=== PATIENT | male | born 2000 | race Caucasian/White ===

== ENCOUNTER 2020-09-22 17:01 | Emergency (ER) | payer OTHER, SELFPAY ==
[2020-09-22] MEDS ORDERED: Acetaminophen 500 MG TAB ONE (19:16)
[2020-09-22] MEDS ORDERED: methylPREDNISolone Sod Succ/PF 125 MG/2 ML VIAL ONE (19:27)
[2020-09-22] MEDS ORDERED: Ketorolac Tromethamine 30 MG/ML VIAL ONE (19:28)
== END 2020-09-22 20:55 | disposition home or self-care (01) ==
LOC: CSHERS 17:01
DX: U07.1 COVID-19 (principal); J12.82 Pneumonia due to coronavirus disease 2019
CPT/HCPCS: 71045; 96374; 96375; J1885; J2930